=== PATIENT | male | born 1985 | race Caucasian/White ===

== ENCOUNTER 2019-01-07 08:56 | Emergency (ER) | payer SELFPAY ==
[~2019-01-07] VITALS: Ht 180.3 cm; Wt 77.1 kg
[2019-01-07] MEDS ORDERED: NAPROXEN 500 MG TABLET PO STA (09:13)
[2019-01-07] MEDS ORDERED: HYDROcodone/APAP 5/325MG 1 TAB TABLET PO ONE (09:15)
--- NOTE | 2019-01-07 09:38 | PHYS DOC ---
Past Medical History Past Medical History: No Pertinent History Past Surgical History: Other Additional Past Surgical Histo: left inguinal HERNIA Alcohol Use: Heavy Additional Information: 2 SHOTS OF WISKEY A DAY Drug Use: None Adult General Chief Complaint Chief Complaint: ANKLE PROBLEM HPI HPI Patient is a 33 year old male who presents to the emergency department with complaints of left lateral ankle pain and swelling after jumping a 4-foot fence last night. Patient states that he felt pain in his ankle when he landed on the ground. He currently rates his pain a 10 out of 10 on the pain scale, he denies any alleviating factors and denies taking any medications prior to arrival for relief of the pain. Patient states pain is so bad he cannot bear weight on his lower left extremity. He denies any numbness, tingling, head injury, neck pain, or back pain. Review of Systems Review of Systems Constitutional: Denies fever or chills [] Musculoskeletal: see history of present illness Integument: Denies rash or skin lesions ; reports swelling and bruising to lower left extremity Neurologic: Denies headache, focal weakness or sensory changes [] Complete systems were reviewed and found to be within normal limits, except as documented in this note. Current Medications Current Medications Current Medications Medications (Trade) Dose Ordered Sig/Lizbeth Start Time Stop Time Status Last Admin Dose Admin Acetaminophen/ Hydrocodone Bitart (Lortab 5/325) 1 tab 1X ONCE 01/07/19 09:15 01/07/19 09:17 DC 01/07/19 09:32 1 TAB Fentanyl Citrate (Fentanyl 2ml Vial) 50 mcg 1X ONCE 01/07/19 12:15 01/07/19 12:16 01/07/19 11:47 50 MCG Naproxen (Naprosyn) 500 mg 1X STAT 01/07/19 09:13 01/07/19 09:17 DC 01/07/19 09:32 500 MG Ondansetron HCl (Zofran) 4 mg 1X ONCE 01/07/19 12:15 01/07/19 12:16 01/07/19 11:46 4 MG Allergies Allergies Allergies Coded Allergies Type Severity Reaction Last Updated Verified No Known Drug Allergies 01/07/19 No Physical Exam Physical Exam Constitutional: Well developed, well nourished, no acute distress, non-toxic appearance. [] HENT: Normocephalic, atraumatic, bilateral external ears normal, nose normal. [] Eyes:, conjunctiva normal, no discharge. [] Neck: Normal range of motion, no stridor. [] Cardiovascular:Heart rate regular rhythm, Lungs & Thorax: Respirations even and unlabored, no retractions, no respiratory distress Skin: Warm, dry, no erythema, no rash. [] Extremities: No cyanosis, lateral left ankle TTP, 1+ edema, no deformity, no crepitus, limited range of motion due to pain Neurologic: Alert and oriented X 3, normal motor function, normal sensory function, no focal deficits noted. [] Psychologic: Affect normal, judgement normal, mood normal. [] Current Patient Data Vital Signs Vital Signs Date Time Temp Pulse Resp B/P (MAP) Pulse Ox O2 Delivery O2 Flow Rate FiO2 01/07/19 11:24 150/97 (114) 01/07/19 10:01 94 01/07/19 09:10 97.9 20 97 Room Air 97.9 EKG EKG [] Radiology/Procedures Radiology/Procedures PROCEDURE: ANKLE LEFT 3V Left ankle 3 views. HISTORY: Pain and swelling after jumping fence 3 views were taken of the left ankle. There is a depressed comminuted fracture of the calcaneus. There is no fracture at the ankle. Talus appears intact. IMPRESSION: 1. Fracture left calcaneus.[] PROCEDURE: CT LOWER EXTREMITY WO LEFT CT of the left foot. HISTORY: Calcaneus fracture. Axial CT images were obtained to the left foot. Sagittal and coronal reconstructed images were reviewed. Distal tibia and fibula are intact. Talus is intact. There is a comminuted fracture of the calcaneus. No other foot fracture is noted. The lateral aspect of the calcaneus at the subtalar joint is impacted into the calcaneus with flattening of Boehler's angle. There are comminuted fragments along the medial aspect of the mid calcaneus. There is a vertical longitudinal fracture through the calcaneus extending to the distal calcaneus with separation from the medial subtalar joint IMPRESSION: 1. Comminuted fracture the calcaneus. 2. The lateral aspect of the subtalar joint is impacted into the calcaneus. 3. Other comminuted fracture lines without significant displacement. Course & Med Decision Making Course & Med Decision Making Pertinent Labs and Imaging studies reviewed. (See chart for details) Dx: Comminuted fracture the calcaneus. Pt was given 1 hydrocodone 5/325 and 1 naproxen 500 mg tablet in the ER reported minimal relief of pain after meds. 1015- Spoke with Dr. Farr about xray results, advised lower ext CT ordered. 1109- Dr. Brooks spoke with Dr. Farr re: CT results, per Dr. Farr pt needs to be evaluated by for this injury 1114- Spoke with Divine abreu RN at , will cloud over images. 1128- Per Divine pt is accepted by by Dr. Cabrera she will call when a bed has been assigned. PT was placed in bulky cotton padding before tx via EMS to med. An IV was initiated and pt was given 50 mcg of fentanyl and 4 mg of zofran for pain. [] Dragon Disclaimer Dragon Disclaimer This electronic medical record was generated, in whole or in part, using a voice recognition dictation system. Departure Departure Impression: Primary Impression: Calcaneus fracture, left Disposition: 02 TRANSFER [facility]) Condition: STABLE Problem Qualifiers Primary Impression: Calcaneus fracture, left Encounter type: initial encounter Calcaneus location: body Fracture type: closed Fracture alignment: displaced Qualified Codes: S92.012A - Displaced fracture of body of left calcaneus, initial encounter for closed fracture PAM BLAKE APRN Jan 07, 2019 09:38
--- NOTE | 2019-01-07 09:59 | RAD ---
Left ankle 3 views. HISTORY: Pain and swelling after jumping fence 3 views were taken of the left ankle. There is a depressed comminuted fracture of the calcaneus. There is no fracture at the ankle. Talus appears intact. IMPRESSION: 1. Fracture left calcaneus. Electronically signed by: Oscar Nathan MD (01/07/2019 9:56 AM) [facility]
--- NOTE | 2019-01-07 10:52 | RAD ---
CT of the left foot. HISTORY: Calcaneus fracture. Axial CT images were obtained to the left foot. Sagittal and coronal reconstructed images were reviewed. Distal tibia and fibula are intact. Talus is intact. There is a comminuted fracture of the calcaneus. No other foot fracture is noted. The lateral aspect of the calcaneus at the subtalar joint is impacted into the calcaneus with flattening of Boehler's angle. There are comminuted fragments along the medial aspect of the mid calcaneus. There is a vertical longitudinal fracture through the calcaneus extending to the distal calcaneus with separation from the medial subtalar joint IMPRESSION: 1. Comminuted fracture the calcaneus. 2. The lateral aspect of the subtalar joint is impacted into the calcaneus. 3. Other comminuted fracture lines without significant displacement. PQRS Compliance Statement: One or more of the following individualized dose reduction techniques were utilized for this examination: 1. Automated exposure control 2. Adjustment of the mA and/or kV according to patient size 3. Use of iterative reconstruction technique Electronically signed by: Oscar Nathan MD (01/07/2019 10:50 AM) [facility]
[2019-01-07 11:24] VITALS: BP 150/97
[2019-01-07] MEDS ORDERED: ONDANSETRON PF 4 MG/2 ML VIAL. IV ONE (12:15)
[2019-01-07] MEDS ORDERED: fentaNYL PF VIAL 100 MCG/2 ML VIAL IV ONE ×2 (12:15→13:00)
== END 2019-01-07 12:36 | disposition short-term general hospital (02) ==
LOC: ER 08:56
DX: S92.012A Displaced fracture of body of left calcaneus, initial encounter for closed fracture (principal); F10.20 Alcohol dependence, uncomplicated; Y90.9 Presence of alcohol in blood, level not specified; X50.9XXA Other and unspecified overexertion or strenuous movements or postures, initial encounter; Y93.39 Activity, other involving climbing, rappelling and jumping off; Y92.89 Other specified places as the place of occurrence of the external cause; Y99.8 Other external cause status
CPT/HCPCS: 73610; 73700; 96374; 96375; 96376; 99285; J2405; J3010